=== PATIENT | male | born 1945 | race Caucasian/White ===

== ENCOUNTER 2017-09-07 19:04 | Inpatient (IN) | payer MEDICARE ==
[~2017-09-07] VITALS: Ht 188 cm; Wt 79.4 kg
[2017-09-07] MEDS ORDERED: ONDANSETRON IV *ER 4 MG/2 ML VIAL IM ONE (19:30)
[2017-09-07] MEDS ORDERED: MORPHINE SULFATE 4 MG/1 ML DISP.SYRIN IM ONE (19:30)
[2017-09-07] MEDS ORDERED: ONDANSETRON 4 MG/2 ML VIAL ONE ×2 (19:54→19:59)
[2017-09-07] MEDS ORDERED: MORPHINE SULFATE 4 MG/1 ML DISP.SYRIN ONE ×2 (19:54→21:29)
[2017-09-07] MEDS ORDERED: MORPHINE SULFATE 10 MG/1 ML DISP.SYRIN ONE (19:59)
[2017-09-07 20:28] LABS: BASOPHILS # (AUTO) 0.1 K/uL (0.0-8.0); BASOPHILS % (AUTO) 0.9 % (0.0-2.0); EOSINOPHILS # (AUTO) 0.2 K/uL (0.0-0.7); EOSINOPHILS % (AUTO) 2.2 % (0.0-7.0); HEMATOCRIT 36.5 % (36.7-47.1); HEMOGLOBIN 12.8 g/dL (12.5-16.3); LYMPHOCYTES # (AUTO) 1.9 K/uL (20.0-40.0); MEAN CORPUSCULAR HEMOGLOBIN 34.1 uug (23.8-33.4); MEAN CORPUSCULAR HGB CONC 35 g/dL (32.5-36.3); MEAN CORPUSCULAR VOLUME 97.2 fL (73.0-96.2); MONOCYTES # (AUTO) 0.6 K/uL (2.0-10.0); MONOCYTES % (AUTO) 6.7 % (0.0-11.0); NEUTROPHILS # (AUTO) 6.8 K/uL (1.8-8.9); NEUTROPHILS % (AUTO) 70.2 % (38.5-71.5); PLATELET COUNT (AUTO) 292 K/uL (152-348); RED BLOOD CELL COUNT(AUTO) 3.76 MIL/uL (4.06-5.63); WHITE BLOOD COUNT (AUTO) 9.7 K/uL (3.6-10.2)
[2017-09-07 20:36] LABS: CREATININE 1.6 mg/dL (0.6-1.3); POTASSIUM 4.5 mmol/L (3.5-5.1)
[2017-09-07] MEDS ORDERED: MORPHINE SULFATE 4 MG/1 ML DISP.SYRIN IV ONE (20:45)
[2017-09-07 20:47] LABS: BILIRUBIN,DIRECT 0.1 mg/dL (0.0-0.2); BILIRUBIN,TOTAL 0.3 mg/dL (0.2-1.0); TOTAL PROTEIN, SERUM 6.6 g/dL (6.4-8.2)
[2017-09-07] MEDS ORDERED: IV D5 1/2 NS 1000 ML 1,000 ML IV ONE (21:03)
--- NOTE | 2017-09-07 21:30 | NUR ---
DR GARCÍA AT [facility] WILL ADMIT PATIENT.
--- NOTE | 2017-09-07 21:45 | NUR ---
Pt. admitted to [facility] , under care of Radha Garcia Belongs List completed
[2017-09-07] MEDS ORDERED: MORPHINE SULFATE 2 MG/1 ML DISP.SYRIN IV PRN (22:15)
[2017-09-07] MEDS ORDERED: ONDANSETRON 4 MG/2 ML VIAL IV PRN (22:15)
[2017-09-07] MEDS ORDERED: Z GUARD REMEDY PASTE 57 GM TUBE TOP PRN (22:15)
[2017-09-07] MEDS ORDERED: MAGNESIUM HYDROXIDE 30 ML LIQUID UDC PO PRN (22:15)
[2017-09-08] MEDS: HYDROCODONE/APAP 5-325MG TABLET PO PRN ×4 (01:18→22:38)
[2017-09-08] MEDS: IV NS 1000 ML 1,000 ML IV PRN (01:24)
[2017-09-08] MEDS ORDERED: HYDROCODONE/APAP 5-325MG TABLET ONE (01:33)
[2017-09-08 04:47] VITALS: BP 102/61
[2017-09-08 05:31] LABS: BASOPHILS # (AUTO) 0.1 K/uL (0.0-8.0); BASOPHILS % (AUTO) 0.8 % (0.0-2.0); EOSINOPHILS % (AUTO) 0.1 % (0.0-7.0); HEMATOCRIT 34.5 % (36.7-47.1); HEMOGLOBIN 11.9 g/dL (12.5-16.3); LYMPHOCYTES # (AUTO) 1.5 K/uL (20.0-40.0); LYMPHOCYTES % (AUTO) 14.3 % (20.5-51.5); MEAN CORPUSCULAR HEMOGLOBIN 34.1 uug (23.8-33.4); MEAN CORPUSCULAR HGB CONC 35 g/dL (32.5-36.3); MEAN CORPUSCULAR VOLUME 98.4 fL (73.0-96.2); MONOCYTES # (AUTO) 0.8 K/uL (2.0-10.0); MONOCYTES % (AUTO) 7.4 % (0.0-11.0); NEUTROPHILS # (AUTO) 8.1 K/uL (1.8-8.9); NEUTROPHILS % (AUTO) 77.4 % (38.5-71.5); PLATELET COUNT (AUTO) 259 K/uL (152-348); WHITE BLOOD COUNT (AUTO) 10.4 K/uL (3.6-10.2)
[2017-09-08] MEDS ORDERED: MORPHINE SULFATE 2 MG/1 ML DISP.SYRIN ONE (05:38)
[2017-09-08 05:47] LABS: BILIRUBIN,TOTAL 0.5 mg/dL (0.2-1.0); CREATININE 2.3 mg/dL (0.6-1.3); MAGNESIUM 1.9 mg/dL (1.8-2.4); PHOSPHOROUS 3.8 mg/dL (2.5-4.9); POTASSIUM 4.9 mmol/L (3.5-5.1)
[2017-09-08] MEDS: PANTOPRAZOLE SODIUM 40 MG TABLET.DR PO SCH ×2 (05:53→08:05)
[2017-09-08 05:55] LABS: THYROID STIMULATING HORMONE 2.914 mIU/mL (0.358-3.740)
[2017-09-08 06:24] LABS: TOTAL PROTEIN, SERUM 6.7 g/dL (6.4-8.2)
--- NOTE | 2017-09-08 07:10 | NUR ---
Received client in bed awake, alert and oriented times 4. Client is stating no pain relief from previous pain medication administration in the morning. Client is able state needs
--- NOTE | 2017-09-08 08:40 | NUR ---
Bladder scan performed, 177ml were noted. Encouraging client to void. No distention noted and discomfort stated by client
[2017-09-08] MEDS: MORPHINE SULFATE 4 MG/1 ML DISP.SYRIN IV PRN ×2 (11:19→18:22)
[2017-09-08 11:31] LABS: IRON, SERUM 16 ug/dL (50-175)
--- NOTE | 2017-09-08 11:35 | NUR ---
Client refused physical therapy. It was reinforced the importance of PT. Client stated he is not ready, stated maybe tomorrow. Noted that the client has not yet voided. Client states no discomfort or distention, upon assessment there is no distention
[2017-09-08 12:03] VITALS: BP 124/69
--- NOTE | 2017-09-08 12:54 | NUR ---
DVT pumps is place, client is compliant and understands the need for them. Client is encouraged to eat and to hydrate. Noted on the right anterior of the leg a skin abrasions. no drainage, no bleeding, no signs of infection. left open to air
--- NOTE | 2017-09-08 14:28 | NUR ---
Client went down for a CAT Scan. IV hydration placed on hold
--- NOTE | 2017-09-08 14:40 | NUR ---
Client arrived back from CAT scan
[2017-09-08 15:28] VITALS: BP 121/79
[2017-09-08 15:39] VITALS: BP 168/84
--- NOTE | 2017-09-08 15:44 | NUR ---
MRI checklist completed, ticket for transportation completed. Client has been premedicated with pain medication before departure for MRI
--- NOTE | 2017-09-08 16:20 | NUR ---
client was transported to for MRI via ambulance with two EMT's. VS stable, client stable
--- NOTE | 2017-09-08 16:30 | NUR ---
Received report on the CT Scan from Dr Mason. Recommending CT of the mani pelvis, CT of the abdomen and pelvis with IV contrast. Please see CT scan for results
--- NOTE | 2017-09-08 16:40 | NUR ---
Dr Tello was reached and endorsed the results of the CT scan and the recommendations for further CT scans the mani pelvis and CT of the abdomen and pelvis with IV contrast. New orders for clients high BP.
--- NOTE | 2017-09-08 17:00 | NUR ---
Client is off the unit. Client is at [facility] for MRI procedure Addendum: 09/08/17 at 1701 by CHAITANYA WRIGHT RN Amended: Links added.
--- NOTE | 2017-09-08 17:01 | NUR ---
Client is off the floor. Client is [facility] for MRI procedure Addendum: 09/08/17 at 1702 by CHAITANYA WRIGHT RN Amended: Links added.
--- NOTE | 2017-09-08 18:08 | NUR ---
Client arrived back to unit accompanied by two EMT's.
[2017-09-08] MEDS: METOPROLOL TARTRATE 25 MG TABLET PO SCH (18:21)
--- NOTE | 2017-09-08 18:22 | NUR ---
Metoprolol given late due to client being of the med-surg for floor for MRI procedure at [facility]
--- NOTE | 2017-09-08 18:34 | NUR ---
Client is in bed comfortably, pain medication given, BP medication give, IV NaCl restarted, 455 ml have been infused due to holding the hydration for CT scan and MRI at [facility] throughout the day. DVT pumps in place. Bed alarm on. Client has not yet voided. No distension and no discomfort stated by client
[2017-09-08 20:00] VITALS: BP 137/73
--- NOTE | 2017-09-08 20:10 | NUR ---
Patient resting in bed and watching TV. AAO x4. No acute distress noted. No c/o pain or discomfort at this time. Safety measures maintained. Call light and personal belongings within reach. Will continue to monitor.
[2017-09-08] MEDS: GABAPENTIN 100 MG CAPSULE PO SCH (21:02)
--- NOTE | 2017-09-09 00:30 | NUR ---
Patient's bladder is distended. Pt stated that he had not voided the whole day. Bladder scan was done and resulted in [address] Zavala was notified and ordered in and out cath Q6H PRN.
--- NOTE | 2017-09-09 00:45 | NUR ---
Performed in and out cath and obtained 700 mL of urine. Pt felt relieved. Will continue to monitor.
[2017-09-09] MEDS: IV NS 1000 ML 1,000 ML IV PRN ×2 (01:05→18:45)
[2017-09-09 01:42] LABS: *BLOOD, URINE NEGATIVE (NEGATIVE); *COLOR,URINE YELLOW (YELLOW); *KETONES,URINE TRACE (NEGATIVE); *PROTEIN,URINE NEGATIVE (NEGATIVE); *UROBILINOGEN,URINE 0.2 E.U./dl (NORMAL); LEUKOCYTE ESTERASE ,URINE NEGATIVE (NEGATIVE); NITRITE, URINE NEGATIVE (NEGATIVE); PH,URINE 5.5 (5.0-8.0); UGLUCOSE NEGATIVE (NEGATIVE)
[2017-09-09 01:48] LABS: *BILIRUBIN,URIN 1+ (NEGATIVE); *CLARITY,URINE HAZY (CLEAR)
[2017-09-09 01:57] LABS: *CREATININE,URINE 256.2 mg/dL (30-125); *URINE TOTAL PROTEIN RANDOM 23.2 mg/dL (<150/24HR)
[2017-09-09 01:58] LABS: BACTERIA,URINE NONE SEEN /HPF (NONE SEEN); RBC,URINE 0-3 /HPF (0-3); SQUAMOUS EPITHELIAL CELL,UR FEW /HPF (NONE SEEN); WBC,URINE 0-3 /HPF (0-3)
[2017-09-09] MEDS: HYDROCODONE/APAP 5-325MG TABLET PO PRN ×3 (03:50→21:06)
[2017-09-09 04:46] VITALS: BP 132/58
--- NOTE | 2017-09-09 06:30 | NUR ---
Bladder scan 140 mL. Will continue to monitor.
[2017-09-09] MEDS: PANTOPRAZOLE SODIUM 40 MG TABLET.DR PO SCH (06:38)
[2017-09-09 07:01] LABS: BILIRUBIN,TOTAL 0.8 mg/dL (0.2-1.0); PHOSPHOROUS 3.8 mg/dL (2.5-4.9); POTASSIUM 4.3 mmol/L (3.5-5.1); TOTAL PROTEIN, SERUM 5.9 g/dL (6.4-8.2)
--- NOTE | 2017-09-09 07:10 | NUR ---
RECEIVED REPORT FROM ROLL MACHINE OPERATOR NURSE,PATIENT IN BED AWAKE,REPORTS PAIN 10/10 BUT NO GRIMACING, GUARDING OR OTHER S/S OF DISTRESS. BED IN LOW POSITION, SIDE RAILS UP X2.
[2017-09-09 07:20] LABS: BASOPHILS # (AUTO) 0.1 K/uL (0.0-8.0); BASOPHILS % (AUTO) 0.9 % (0.0-2.0); EOSINOPHILS # (AUTO) 0.1 K/uL (0.0-0.7); EOSINOPHILS % (AUTO) 1.2 % (0.0-7.0); LYMPHOCYTES # (AUTO) 2.1 K/uL (20.0-40.0); LYMPHOCYTES % (AUTO) 22.3 % (20.5-51.5); MEAN CORPUSCULAR HGB CONC 35 g/dL (32.5-36.3); MEAN CORPUSCULAR VOLUME 98.5 fL (73.0-96.2); MONOCYTES % (AUTO) 10.6 % (0.0-11.0); PLATELET COUNT (AUTO) 228 K/uL (152-348); RED BLOOD CELL COUNT(AUTO) 2.98 MIL/uL (4.06-5.63); WHITE BLOOD COUNT (AUTO) 9.3 K/uL (3.6-10.2)
[2017-09-09 07:31] LABS: HEMATOCRIT 29.3 % (36.7-47.1); HEMOGLOBIN 10.1 g/dL (12.5-16.3)
[2017-09-09] MEDS: GABAPENTIN 100 MG CAPSULE PO SCH ×3 (08:41→17:04)
[2017-09-09] MEDS: METOPROLOL TARTRATE 25 MG TABLET PO SCH ×3 (08:42→17:06)
--- NOTE | 2017-09-09 09:48 | NUR ---
PERFORMED BLADDER SCAN REVEALING AVERAGE OF 280CC. PATIENT WILL CONTINUE TO TRY TO URINATE ON OWN PER REQUEST. WILL CONSIDER IN/OUT CATH IF URINE CONTINUES TO BE RETAINED ORDERED.
[2017-09-09 11:28] VITALS: BP 135/60
[2017-09-09] MEDS: MORPHINE SULFATE 4 MG/1 ML DISP.SYRIN IV PRN ×2 (13:00→18:32)
[2017-09-09 15:08] VITALS: BP 142/56
[2017-09-09] MEDS: HEPARIN SODIUM,PORCINE 5,000 UNITS/ML VIAL SQ SCH ×2 (17:03→20:35)
[2017-09-09] MEDS: BOOST GLUCOSE CONTROL 237 ML LIQUID (CHOCOLATE) PO SCH (17:04)
--- NOTE | 2017-09-09 17:56 | NUR ---
Catheter placed on patient as bladder scan revealed 640cc urine. Patient tolerated well, no evidence of distress noted, bed in low position, side rails up x2. Patient has had intermittent severe pain, patient has been rotated onto side and inspected for bed sores, nothing noted. Patient was informed that he must rotate every 2 hours to prevent wounds.
--- NOTE | 2017-09-09 19:51 | NUR ---
RECEIVED SHIFT REPORT FROM DAY SHIFT NURSE. PATIENT IS A/OX4, STABLE CONDITION NO S/S. ON STRICT BED REST. BEEBE IN PLACE, INTACT. PAIN MANAGEMENT WILL BE PROVIDED. BED IN LOCKED/LOW POSITION, SIDE RAILS UP X2, BED ALARM ON, CALL LIGHT WITHIN REACH. SAFETY/ COMFORT WILL BE PROVIDED.
[2017-09-09 20:32] VITALS: BP 126/58
--- NOTE | 2017-09-09 20:35 | NUR ---
TEMPERATURE 100.4: COOLING MEASURES AND TYLENOL 650 MG PO WILL BE GIVEN.
[2017-09-09] MEDS: ACETAMINOPHEN 325 MG TABLET PO PRN (21:05)
[2017-09-10] MEDS: HYDROCODONE/APAP 5-325MG TABLET PO PRN ×3 (06:10→20:29)
[2017-09-10] MEDS: PANTOPRAZOLE SODIUM 40 MG TABLET.DR PO SCH (06:10)
[2017-09-10] MEDS: IV NS 1000 ML 1,000 ML IV PRN ×2 (06:24→21:38)
[2017-09-10 06:33] VITALS: BP 153/66
[2017-09-10 06:56] LABS: BASOPHILS # (AUTO) 0.1 K/uL (0.0-8.0); BASOPHILS % (AUTO) 0.6 % (0.0-2.0); EOSINOPHILS # (AUTO) 0.1 K/uL (0.0-0.7); EOSINOPHILS % (AUTO) 1.5 % (0.0-7.0); HEMATOCRIT 28.3 % (36.7-47.1); HEMOGLOBIN 9.8 g/dL (12.5-16.3); LYMPHOCYTES # (AUTO) 1.8 K/uL (20.0-40.0); LYMPHOCYTES % (AUTO) 19.2 % (20.5-51.5); MEAN CORPUSCULAR HEMOGLOBIN 34.3 uug (23.8-33.4); MEAN CORPUSCULAR HGB CONC 34 g/dL (32.5-36.3); MEAN CORPUSCULAR VOLUME 99.5 fL (73.0-96.2); MONOCYTES # (AUTO) 0.8 K/uL (2.0-10.0); MONOCYTES % (AUTO) 8.8 % (0.0-11.0); NEUTROPHILS # (AUTO) 6.6 K/uL (1.8-8.9); NEUTROPHILS % (AUTO) 69.9 % (38.5-71.5); PLATELET COUNT (AUTO) 218 K/uL (152-348); RED BLOOD CELL COUNT(AUTO) 2.85 MIL/uL (4.06-5.63); WHITE BLOOD COUNT (AUTO) 9.4 K/uL (3.6-10.2)
--- NOTE | 2017-09-10 07:00 | NUR ---
PATIENT'S BP 153/64. PATIENT COMPLAINING OF CHEST PAIN AT LEFT LATERAL CHEST, 6/10 SIMILAR TO A HEART BURN THAT IS RADIATING TOWARDS BACK. AWAITING DOCTOR CALL BACK, AND WILL ENDORSE SITUATION TO NEXT SHIFT.
[2017-09-10 07:07] LABS: CREATININE 1.5 mg/dL (0.6-1.3); MAGNESIUM 1.9 mg/dL (1.8-2.4); PHOSPHOROUS 2.9 mg/dL (2.5-4.9); POTASSIUM 4.3 mmol/L (3.5-5.1)
[2017-09-10] MEDS: BOOST GLUCOSE CONTROL 237 ML LIQUID (CHOCOLATE) PO SCH ×2 (08:00→17:20)
[2017-09-10] MEDS: CARISOPRODOL 350 MG TABLET PO PRN (10:03)
[2017-09-10] MEDS: GABAPENTIN 100 MG CAPSULE PO SCH ×3 (10:03→17:22)
[2017-09-10] MEDS: METOPROLOL TARTRATE 25 MG TABLET PO SCH ×2 (10:07→17:22)
[2017-09-10] MEDS: NICOTINE 21 MG/24HR PATCH TD SCH (10:09)
[2017-09-10] MEDS: HEPARIN SODIUM,PORCINE 5,000 UNITS/ML VIAL SQ SCH ×2 (10:09→23:36)
[2017-09-10 11:36] VITALS: BP 126/63
[2017-09-10 15:59] VITALS: BP 160/70
--- NOTE | 2017-09-10 19:40 | NUR ---
RECEIVED SHIFT REPORT FROM DAY SHIFT NURSE. PATIENT RESTING COMFORTABLY IN BED, NO S/S OF DISTRESS, STABLE CONDITION. ON STRICT BED REST, BED IN LOCKED/LOW POSITION WITH SIDE RAILS UP X2, CALL LIGHT WITHIN REACH. SAFETY/ COMFORT WILL BE PROVIDED.
[2017-09-10 20:00] VITALS: BP 137/64
[2017-09-11] VITALS (7 sets, daily range): BP systolic 93–178; BP diastolic 49–84
--- NOTE | 2017-09-11 05:25 | NUR ---
PATIENT'S BP 169/68. NOTIFIED OF SITUATION AND ORDERED: HYDRALAZINE 10 MG IV ONCE.
[2017-09-11] MEDS ORDERED: hydrALAZINE HCL 20 MG/1 ML VIAL IV PRN (05:30)
[2017-09-11] MEDS: HYDROCODONE/APAP 5-325MG TABLET PO PRN ×2 (05:45→21:01)
[2017-09-11] MEDS: PANTOPRAZOLE SODIUM 40 MG TABLET.DR PO SCH (05:45)
[2017-09-11] MEDS: IV NS 1000 ML 1,000 ML IV PRN (05:47)
--- NOTE | 2017-09-11 06:38 | NUR ---
PATIENT SLEPT THROUGH MAJORITY OF THE NIGHT. RESTING COMFORTABLY IN BED AT THIS MOMENT. NO SIGNS OF ASPIRATIONS, ON STRICT BED REST, URINE OUTPUT APPEARS ADEQUATE. BLOOD PRESSURE IS ELEVATED AND HAS BEEN CLOSELY MONITORED. IN STABLE CONDITION, NO S/S OF DISTRESS. PAIN MANAGEMENT PROVIDED AND PATIENT'S VERBALIZED THAT PAIN IS TOLERABLE AT THIS MOMENT. BED IN LOCKED/LOW POSITION WITH SIDE RAILS UP X2, BED ALARM ON, CALL LIGHT WITHIN REACH.
--- NOTE | 2017-09-11 07:00 | NUR ---
RECEIVED REPORT FROM WATER METER INSTALLER NURSE, PATIENT IN BED AWAKE, NO EVIDENCE OF DISTRESS NOTED, BED IN LOW POSITION, SIDE RAILS UP X2.
[2017-09-11 07:02] LABS: BASOPHILS # (AUTO) 0.1 K/uL (0.0-8.0); EOSINOPHILS # (AUTO) 0.2 K/uL (0.0-0.7); EOSINOPHILS % (AUTO) 2.8 % (0.0-7.0); HEMATOCRIT 28.6 % (36.7-47.1); HEMOGLOBIN 9.7 g/dL (12.5-16.3); LYMPHOCYTES # (AUTO) 1.9 K/uL (20.0-40.0); MEAN CORPUSCULAR HEMOGLOBIN 33.6 uug (23.8-33.4); MEAN CORPUSCULAR HGB CONC 34 g/dL (32.5-36.3); MEAN CORPUSCULAR VOLUME 98.4 fL (73.0-96.2); MONOCYTES # (AUTO) 0.7 K/uL (2.0-10.0); MONOCYTES % (AUTO) 9.1 % (0.0-11.0); NEUTROPHILS % (AUTO) 63.1 % (38.5-71.5); PLATELET COUNT (AUTO) 242 K/uL (152-348); WHITE BLOOD COUNT (AUTO) 7.9 K/uL (3.6-10.2)
[2017-09-11 07:32] LABS: BILIRUBIN,TOTAL 0.6 mg/dL (0.2-1.0); CREATININE 1.3 mg/dL (0.6-1.3); MAGNESIUM 1.8 mg/dL (1.8-2.4); PHOSPHOROUS 2.4 mg/dL (2.5-4.9); POTASSIUM 4.9 mmol/L (3.5-5.1)
[2017-09-11] MEDS: BOOST GLUCOSE CONTROL 237 ML LIQUID (CHOCOLATE) PO SCH ×2 (08:34→17:31)
[2017-09-11] MEDS: GABAPENTIN 100 MG CAPSULE PO SCH ×3 (08:34→17:30)
[2017-09-11] MEDS: METOPROLOL TARTRATE 25 MG TABLET PO SCH ×2 (08:35→17:30)
[2017-09-11] MEDS: HEPARIN SODIUM,PORCINE 5,000 UNITS/ML VIAL SQ SCH ×2 (08:36→21:07)
[2017-09-11] MEDS: NICOTINE 21 MG/24HR PATCH TD SCH (08:36)
[2017-09-11] MEDS: MORPHINE SULFATE 4 MG/1 ML DISP.SYRIN IV PRN (11:23)
--- NOTE | 2017-09-11 13:50 | NUR ---
PATIENT WAS SEEN BY DR GUTIERREZ WHICH CLEARED HIM TO PARTICIPATE IN PHYSICAL THERAPY. DR GUTIERREZ DID NOT FEEL THAT IT WAS NECESSARY FOR PATIENT TO HAVE A BRACE.
[2017-09-11] MEDS: CARISOPRODOL 350 MG TABLET PO PRN ×2 (15:18→21:05)
[2017-09-11] MEDS ORDERED: NEUTRA PHOS PACKET PO ONE (15:45)
--- NOTE | 2017-09-11 19:43 | NUR ---
RECEIVED SHIFT REPORT FROM DAY SHIFT NURSE. PATIENT APPEARED TO HAVE WOKEN UP FROM BAD DREAM BUT IS REORIENTED. STABLE CONDITION, NO S/S OF DISTRESS. ON BED REST, BEEBE INTACT/IN PLACE. NO COMPLAINTS OF PAIN SO FAR. PAIN MANAGEMENT WILL BE PROVIDED. BED IN LOCKED/LOW POSITION, SIDE RAILS UP X2, BED ALARM ON, CALL LIGHT WITHIN REACH.
--- NOTE | 2017-09-11 20:00 | NUR ---
PATIENT'S MENTAL STATUS IS ALTERED. PATIENT SPEAKING TO PEOPLE IN THE ROOM THAT ARE NOT THERE. PATIENT SEEING PEOPLE THAT ARE NOT THERE. PATIENT VERBALIZES THAT HE DOES NOT HAVE THOUGHTS OF HURTING HIMSELF OR OTHERS. MD NOTIFIED AND ORDERED CT SCAN HEAD STAT.
--- NOTE | 2017-09-11 22:00 | NUR ---
PATIENT'S BP 178/77. MD NOTIFIED AND ORDERED HYDRALAZINE 20 MG PO PRN WHEN SBP IS ABOVE 160. WILL ADMINISTER TO PATIENT.
[2017-09-11] MEDS: hydrALAZINE HCL 10 MG TABLET PO PRN (22:32)
[2017-09-11] MEDS ORDERED: hydrALAZINE HCL 10 MG TABLET ONE (22:35)
[2017-09-12 00:13] VITALS: BP 140/69
[2017-09-12] MEDS: IV NS 1000 ML 1,000 ML IV PRN ×2 (00:18→11:29)
[2017-09-12 04:00] VITALS: BP 166/74
[2017-09-12] MEDS: MORPHINE SULFATE 4 MG/1 ML DISP.SYRIN IV PRN ×2 (04:52→13:59)
--- NOTE | 2017-09-12 05:43 | NUR ---
PATIENT CONTINUES TO BE EXTREMELY CONFUSED. TRIES TO GET OUT OF BED AND LEAVE. VERBALIZES, "I WANT TO GET THE HELL OUT OF HERE". PATIENT CONTINUES TO HALLUCINATE AND SEE "A KID" , AND "A MAN" AND SPEAKS TO THEM BUT NO ONE IS IN THE ROOM.
[2017-09-12] MEDS ORDERED: hydrALAZINE HCL 10 MG TABLET ONE (05:58)
[2017-09-12] MEDS: hydrALAZINE HCL 10 MG TABLET PO PRN (06:36)
[2017-09-12] MEDS: PANTOPRAZOLE SODIUM 40 MG TABLET.DR PO SCH (06:37)
[2017-09-12 06:41] LABS: BASOPHILS # (AUTO) 0.1 K/uL (0.0-8.0); BASOPHILS % (AUTO) 0.8 % (0.0-2.0); EOSINOPHILS # (AUTO) 0.2 K/uL (0.0-0.7); HEMATOCRIT 28.6 % (36.7-47.1); HEMOGLOBIN 9.9 g/dL (12.5-16.3); LYMPHOCYTES # (AUTO) 1.2 K/uL (20.0-40.0); MEAN CORPUSCULAR HEMOGLOBIN 33.5 uug (23.8-33.4); MEAN CORPUSCULAR HGB CONC 35 g/dL (32.5-36.3); MONOCYTES # (AUTO) 0.6 K/uL (2.0-10.0); NEUTROPHILS # (AUTO) 5.6 K/uL (1.8-8.9); NEUTROPHILS % (AUTO) 73.2 % (38.5-71.5); PLATELET COUNT (AUTO) 260 K/uL (152-348); RED BLOOD CELL COUNT(AUTO) 2.95 MIL/uL (4.06-5.63); WHITE BLOOD COUNT (AUTO) 7.6 K/uL (3.6-10.2)
--- NOTE | 2017-09-12 06:57 | NUR ---
PATIENT VERY UNCOOPERATIVE, CONFUSED. PATIENT PULLED OUT HIS IV WHILE ATTEMPTING TO GET OUT OF BED. ALSO ATTEMPTED TO PULL OUT BEEBE CATHETER. BP 166/74: HYDRALAZINE 20 MG PO GIVEN TO PATIENT.
[2017-09-12 07:06] LABS: CREATININE 1.2 mg/dL (0.6-1.3); MAGNESIUM 1.6 mg/dL (1.8-2.4); PHOSPHOROUS 3.6 mg/dL (2.5-4.9)
--- NOTE | 2017-09-12 08:17 | NUR ---
PT VERY CONFUSED, DOES NOT WANT ANY MEDICATIONS AT THIS TIME, STATES VERY CONFUSED AND OVERWHELMED. PT IN BED, BED ALARM ON, TELE MONITOR NOT ON, PT REFUSING TO WEAR AT THIS TIME. WILL TRY AGAIN AND MONITOR CLOSELY
[2017-09-12] MEDS: BOOST GLUCOSE CONTROL 237 ML LIQUID (CHOCOLATE) PO SCH ×2 (08:36→16:15)
[2017-09-12] MEDS: NICOTINE 21 MG/24HR PATCH TD SCH (08:51)
[2017-09-12] MEDS: GABAPENTIN 100 MG CAPSULE PO SCH ×3 (08:51→16:14)
[2017-09-12] MEDS: METOPROLOL TARTRATE 25 MG TABLET PO SCH ×2 (08:52→16:14)
[2017-09-12] MEDS: HEPARIN SODIUM,PORCINE 5,000 UNITS/ML VIAL SQ SCH ×2 (08:58→21:12)
--- NOTE | 2017-09-12 10:00 | NUR ---
NEW IV INSERTED IN RFA G22, IV FLUIDS RESUMED. BED BATH GIVEN AND PT MADE COMFORTABLE. SLEEPING IN BED AT THIS TIME, CALL LIGHT IN REACH
[2017-09-12 11:43] VITALS: BP 156/71
[2017-09-12] MEDS ORDERED: HEPA50007 SQ (12:19)
[2017-09-12] MEDS ORDERED: GABA-532 PO (12:19)
[2017-09-12] MEDS ORDERED: HYDR-4075 PO (12:19)
[2017-09-12] MEDS ORDERED: NICO1PAT28 TD (12:19)
[2017-09-12] MEDS ORDERED: METO25TA6 PO (12:19)
[2017-09-12] MEDS ORDERED: PANT40TA2 PO (12:19)
[2017-09-12] MEDS ORDERED: CARI350T27 PO (12:19)
[2017-09-12] MEDS: MAGNESIUM SULFATE/D5W 100 ML IV SCH ×2 (12:38→13:51)
[2017-09-12 15:42] VITALS: BP 145/76
--- NOTE | 2017-09-12 19:25 | NUR ---
RECEIVED SHIFT REPORT FROM DAY SHIFT NURSE. PATIENT RESTING COMFORTABLY IN BED WITH BRACE ON. PAIN MANAGEMENT WILL BE PROVIDED NEEDED. WILL REORIENT PATIENT WHEN CONFUSED. NO LONGER ON BED REST, BED IN LOCKED/LOW POSITION WITH SIDE RAILS UP X2, CALL LIGHT WITHIN REACH, BED ALARM ON. SAFETY/ COMFORT WILL BE PROVIDED.
[2017-09-12 20:00] VITALS: BP 137/67
--- NOTE | 2017-09-13 00:51 | NUR ---
TRANSFERRED CARE TO ANOTHER NURSE. REPORT GIVEN.
--- NOTE | 2017-09-13 00:55 | NUR ---
Patient received laying on bed, asleep, no s/s of any acute distress. Safety measures provided. call light within reach.
[2017-09-13] MEDS: MORPHINE SULFATE 4 MG/1 ML DISP.SYRIN IV PRN (01:02)
[2017-09-13] MEDS: IV NS 1000 ML 1,000 ML IV PRN ×2 (01:44→15:23)
[2017-09-13 06:28] VITALS: BP 132/76
--- NOTE | 2017-09-13 06:58 | NUR ---
pt. slept throughout the shift, no s/s of any respi. distress. Safety measures provided. All due meds given. Able to make needs known. will endorse to AM shift nurse.
[2017-09-13] MEDS: PANTOPRAZOLE SODIUM 40 MG TABLET.DR PO SCH (07:02)
--- NOTE | 2017-09-13 07:30 | NUR ---
RECEIVED REPORT, RECEIVED PATIENT ASLEEP, CALL LIGHT WITHIN REACH. NON-LABORED BREATHING.
[2017-09-13] MEDS: BOOST GLUCOSE CONTROL 237 ML LIQUID (CHOCOLATE) PO SCH ×2 (08:42→16:11)
[2017-09-13] MEDS: GABAPENTIN 100 MG CAPSULE PO SCH ×3 (08:46→16:10)
[2017-09-13] MEDS: HYDROCODONE/APAP 5-325MG TABLET PO PRN ×3 (08:47→23:32)
[2017-09-13] MEDS: METOPROLOL TARTRATE 25 MG TABLET PO SCH ×2 (08:47→16:11)
[2017-09-13] MEDS: NICOTINE 21 MG/24HR PATCH TD SCH (08:50)
[2017-09-13] MEDS: HEPARIN SODIUM,PORCINE 5,000 UNITS/ML VIAL SQ SCH ×2 (08:50→20:59)
--- NOTE | 2017-09-13 09:00 | NUR ---
PATIENT AWAKE, EATING BREAKFAST. TOLERATING WELL. NOT IN ANY FORM OF DISTRESS. ALERT AND ORIENTED X3. PATIENT COMPLAINED OF LOWER BACK PAIN RATED 6/10. PRN NORCO GIVEN
--- NOTE | 2017-09-13 10:14 | NUR ---
UP WITH PHYSICAL THERAPY. TOLERATED THERAPY WELL. ABLE TO TAKE FEW STEPS AND AMBULATE. TLSO BRACE INTACT.
[2017-09-13 11:28] LABS: BASOPHILS # (AUTO) 0.1 K/uL (0.0-8.0); BASOPHILS % (AUTO) 0.9 % (0.0-2.0); EOSINOPHILS # (AUTO) 0.2 K/uL (0.0-0.7); EOSINOPHILS % (AUTO) 3.6 % (0.0-7.0); HEMATOCRIT 26.9 % (36.7-47.1); HEMOGLOBIN 9.2 g/dL (12.5-16.3); LYMPHOCYTES # (AUTO) 1.2 K/uL (20.0-40.0); LYMPHOCYTES % (AUTO) 18.3 % (20.5-51.5); MEAN CORPUSCULAR HEMOGLOBIN 33.6 uug (23.8-33.4); MEAN CORPUSCULAR HGB CONC 34 g/dL (32.5-36.3); MEAN CORPUSCULAR VOLUME 97.7 fL (73.0-96.2); MONOCYTES # (AUTO) 0.5 K/uL (2.0-10.0); MONOCYTES % (AUTO) 7.4 % (0.0-11.0); NEUTROPHILS # (AUTO) 4.7 K/uL (1.8-8.9); NEUTROPHILS % (AUTO) 69.8 % (38.5-71.5); PLATELET COUNT (AUTO) 274 K/uL (152-348); RED BLOOD CELL COUNT(AUTO) 2.75 MIL/uL (4.06-5.63); WHITE BLOOD COUNT (AUTO) 6.7 K/uL (3.6-10.2)
[2017-09-13 11:32] VITALS: BP 127/64
[2017-09-13 11:56] LABS: BILIRUBIN,TOTAL 0.5 mg/dL (0.2-1.0); CREATININE 1.2 mg/dL (0.6-1.3); PHOSPHOROUS 3.6 mg/dL (2.5-4.9); POTASSIUM 4.1 mmol/L (3.5-5.1); TOTAL PROTEIN, SERUM 5.9 g/dL (6.4-8.2)
--- NOTE | 2017-09-13 12:42 | NUR ---
DISCOMFORT OVER LOWER BACK PAIN RATED 6/10. SOMA PRN GIVEN
[2017-09-13] MEDS: CARISOPRODOL 350 MG TABLET PO PRN (12:44)
[2017-09-13 16:02] VITALS: BP 137/66
--- NOTE | 2017-09-13 19:45 | NUR ---
PT RECEIVED IN BED, AWAKE. A/OX2. ABLE TO MAKE NEEDS KNOWN. V/S STABLE. IN NO ACUTE DISTRESS. NO C/O PAIN AT THIS TIME. IVF INFUSING. ON RA, TOLERATING WELL. AFEBRILE. BEEBE INTACT AND PATENT. SAFETY MEASURES IMPLEMENTED. CALL LIGHT WITHIN REACH.
[2017-09-13 20:00] VITALS: BP 145/67
[2017-09-14 06:00] VITALS: BP 169/77
[2017-09-14] MEDS: PANTOPRAZOLE SODIUM 40 MG TABLET.DR PO SCH (06:00)
[2017-09-14] MEDS: hydrALAZINE HCL 10 MG TABLET PO PRN (06:00)
[2017-09-14] MEDS: IV NS 1000 ML 1,000 ML IV PRN (06:08)
--- NOTE | 2017-09-14 06:53 | NUR ---
END OF SHIFT NOTES. PT SLEPT WELL THROUGHOUT SHIFT. IN STABLE CONDITION. IVF INFUSING. BEEBE INTACT AND PATENT. ON RA, TOLERATING WELL. PAIN MANAGED. BP CONTROLLED. ALL NEEDS ATTENDED. SAFETY MAINTAINED. CALL LIGHT WITHIN REACH.
[2017-09-14 07:04] LABS: BASOPHILS # (AUTO) 0.1 K/uL (0.0-8.0); BASOPHILS % (AUTO) 0.8 % (0.0-2.0); EOSINOPHILS # (AUTO) 0.4 K/uL (0.0-0.7); EOSINOPHILS % (AUTO) 4.9 % (0.0-7.0); HEMATOCRIT 26.4 % (36.7-47.1); HEMOGLOBIN 9.1 g/dL (12.5-16.3); LYMPHOCYTES # (AUTO) 1.9 K/uL (20.0-40.0); LYMPHOCYTES % (AUTO) 25.8 % (20.5-51.5); MEAN CORPUSCULAR HEMOGLOBIN 33.9 uug (23.8-33.4); MEAN CORPUSCULAR HGB CONC 35 g/dL (32.5-36.3); MONOCYTES # (AUTO) 0.6 K/uL (2.0-10.0); MONOCYTES % (AUTO) 8.9 % (0.0-11.0); NEUTROPHILS # (AUTO) 4.3 K/uL (1.8-8.9); NEUTROPHILS % (AUTO) 59.6 % (38.5-71.5); PLATELET COUNT (AUTO) 314 K/uL (152-348); RED BLOOD CELL COUNT(AUTO) 2.69 MIL/uL (4.06-5.63); WHITE BLOOD COUNT (AUTO) 7.3 K/uL (3.6-10.2)
--- NOTE | 2017-09-14 07:15 | NUR ---
Received client in bed asleep, no apparent signs and symptoms of SOB, pain, distress or discomfort.
[2017-09-14 07:17] LABS: BILIRUBIN,TOTAL 0.4 mg/dL (0.2-1.0); CREATININE 1.2 mg/dL (0.6-1.3); MAGNESIUM 1.9 mg/dL (1.8-2.4); PHOSPHOROUS 3.7 mg/dL (2.5-4.9); POTASSIUM 4.5 mmol/L (3.5-5.1)
[2017-09-14] MEDS: GABAPENTIN 100 MG CAPSULE PO SCH ×3 (08:38→16:08)
[2017-09-14] MEDS: METOPROLOL TARTRATE 25 MG TABLET PO SCH ×2 (08:38→16:08)
[2017-09-14] MEDS: HEPARIN SODIUM,PORCINE 5,000 UNITS/ML VIAL SQ SCH ×2 (08:40→21:12)
[2017-09-14] MEDS: BOOST GLUCOSE CONTROL 237 ML LIQUID (CHOCOLATE) PO SCH ×2 (08:44→17:32)
[2017-09-14] MEDS: MORPHINE SULFATE 4 MG/1 ML DISP.SYRIN IV PRN (08:57)
[2017-09-14] MEDS: NICOTINE 21 MG/24HR PATCH TD SCH (09:38)
--- NOTE | 2017-09-14 10:30 | NUR ---
Collected stool sample and sent down to Lab
[2017-09-14] MEDS: FERROUS SULFATE 325 MG TABEC PO SCH ×2 (10:55→21:12)
--- NOTE | 2017-09-14 11:01 | NUR ---
Client received a sponge bath. In bed awake alert and oriented times 4. Laying supine with the HOB at 45 degrees watching television. Talking and able to communicate needs. DVT pumps in place.
--- NOTE | 2017-09-14 11:10 | NUR ---
Discontinued IV NS 0.9% 1000ml as ordered
--- NOTE | 2017-09-14 11:10 | NUR ---
Physical therapy session with client, overall tolerated well. Client stated he felt a bit dizzy and weak and was verbalized to PT as well
[2017-09-14] MEDS: HYDROCODONE/APAP 5-325MG TABLET PO PRN ×2 (11:39→21:13)
[2017-09-14 12:00] VITALS: BP 124/51
--- NOTE | 2017-09-14 12:04 | NUR ---
Chest x-ray done, client tolerated well
[2017-09-14 12:30] LABS: *OCCULT BLOOD STOOL NEGATIVE (NEGATIVE)
--- NOTE | 2017-09-14 13:30 | NUR ---
Repositioned client with the assistance of the DATA REPORTING ANALYST, tolerated well. Laying on his left side, offloading the right shoulder
[2017-09-14] MEDS: DOCUSATE SODIUM 100 MG CAPSULE PO SCH ×2 (14:23→21:11)
[2017-09-14 15:42] VITALS: BP 129/89
--- NOTE | 2017-09-14 16:38 | NUR ---
Client is in bed resting comfortably watching television, no signs and symptoms of SOB, pain, distress or discomfort. Able to verbalize needs.
[2017-09-14 19:00] VITALS: BP 121/60
[2017-09-14] MEDS: MAGNESIUM HYDROXIDE 30 ML LIQUID UDC PO PRN (21:11)
[2017-09-14] MEDS ORDERED: FLEET ENEMA 133 ML BOTTLE RC ONE (21:30)
--- NOTE | 2017-09-15 05:26 | NUR ---
PT SLEPT WELL THROUGH THE NIGHT AND WAS EASILY AWOKEN, PT COMPLAINED OF PAIN THAT WOULD GET WORSE WITH MOVEMENT, PAIN MEDICATION WAS GIVEN AND WAS EFFECTIVE. PT DENIED HAVING ANY DIFFICULTY BREATHING. PT BEEBE IS INTACT AND PATENT DRAINING YELLOW URINE. ALL NEEDS MET, SAFETY MEASURES ARE IN PLACE, CALL LIGHT WITHIN REACH, BED ALARM IS ON.
[2017-09-15 06:36] LABS: BASOPHILS # (AUTO) 0.1 K/uL (0.0-8.0); BASOPHILS % (AUTO) 0.7 % (0.0-2.0); EOSINOPHILS # (AUTO) 0.4 K/uL (0.0-0.7); EOSINOPHILS % (AUTO) 4.5 % (0.0-7.0); HEMATOCRIT 26.6 % (36.7-47.1); HEMOGLOBIN 9.2 g/dL (12.5-16.3); LYMPHOCYTES # (AUTO) 2.1 K/uL (20.0-40.0); LYMPHOCYTES % (AUTO) 25.2 % (20.5-51.5); MEAN CORPUSCULAR HEMOGLOBIN 33.3 uug (23.8-33.4); MEAN CORPUSCULAR HGB CONC 34 g/dL (32.5-36.3); MEAN CORPUSCULAR VOLUME 96.9 fL (73.0-96.2); MONOCYTES # (AUTO) 0.8 K/uL (2.0-10.0); MONOCYTES % (AUTO) 9.4 % (0.0-11.0); NEUTROPHILS # (AUTO) 5.1 K/uL (1.8-8.9); NEUTROPHILS % (AUTO) 60.2 % (38.5-71.5); PLATELET COUNT (AUTO) 356 K/uL (152-348); RED BLOOD CELL COUNT(AUTO) 2.75 MIL/uL (4.06-5.63); WHITE BLOOD COUNT (AUTO) 8.5 K/uL (3.6-10.2)
[2017-09-15] MEDS: HYDROCODONE/APAP 5-325MG TABLET PO PRN ×2 (06:36→10:38)
[2017-09-15] MEDS: PANTOPRAZOLE SODIUM 40 MG TABLET.DR PO SCH (06:36)
[2017-09-15 07:10] LABS: BILIRUBIN,TOTAL 0.5 mg/dL (0.2-1.0); CREATININE 1.2 mg/dL (0.6-1.3); MAGNESIUM 2.2 mg/dL (1.8-2.4); PHOSPHOROUS 3.5 mg/dL (2.5-4.9); POTASSIUM 4.4 mmol/L (3.5-5.1); TOTAL PROTEIN, SERUM 6.1 g/dL (6.4-8.2)
[2017-09-15] MEDS: BOOST GLUCOSE CONTROL 237 ML LIQUID (CHOCOLATE) PO SCH ×2 (08:18→17:29)
[2017-09-15] MEDS: ALFUZOSIN HCL 10 MG TAB.SR.24H PO SCH (08:36)
[2017-09-15] MEDS: FERROUS SULFATE 325 MG TABEC PO SCH ×2 (08:37→20:51)
[2017-09-15] MEDS: GABAPENTIN 100 MG CAPSULE PO SCH ×3 (08:37→17:29)
[2017-09-15] MEDS: DOCUSATE SODIUM 100 MG CAPSULE PO SCH ×2 (08:37→20:51)
[2017-09-15] MEDS: METOPROLOL TARTRATE 25 MG TABLET PO SCH ×2 (08:38→17:30)
[2017-09-15] MEDS: HEPARIN SODIUM,PORCINE 5,000 UNITS/ML VIAL SQ SCH ×2 (08:41→20:53)
[2017-09-15] MEDS: NICOTINE 21 MG/24HR PATCH TD SCH (08:42)
[2017-09-15 11:48] VITALS: BP 132/64
[2017-09-15] MEDS ORDERED: MAGNESIUM HYDROXIDE 30 ML LIQUID UDC PO ONE (14:15)
[2017-09-15] MEDS: CARISOPRODOL 350 MG TABLET PO PRN (15:06)
[2017-09-15 16:51] VITALS: BP 134/72
[2017-09-15 20:00] VITALS: BP 134/63
--- NOTE | 2017-09-15 20:30 | NUR ---
PT'S A/A/O X4,DENIED OF PAIN BUT STATED THAT " I HAD CONSTIPATION BUT I DON'T WANT FLEET ENEMA". VISITED PT AT THIS TIME;NEW ORDER'S GIVEN,UPDATED THE PLAN OF CARE TO PT;HE VERBALIZED UNDERSTANDING AND COOPERATIVE NOTED.KEPT COMFORT.CALL-LIGHT WITHIN REACH.
[2017-09-15] MEDS ORDERED: MIRALAX 17 GM POWD.PACK PO ONE (20:45)
[2017-09-16] MEDS: HYDROCODONE/APAP 5-325MG TABLET PO PRN ×2 (05:21→11:04)
[2017-09-16 05:32] VITALS: BP 144/62
--- NOTE | 2017-09-16 06:10 | NUR ---
ASSISTED PT TO REPOSITION AT THIS TIME.PT SLEPT WELL DURING OF THE NIGHT.PAIN'S CONTROLLED IN THE SHIFT.NO DISTRESS NOTED IN THE SHIFT.KEPT NPO FOR XRAY ORDER IN AM;EDUCATED TO PT;HE VERBALIZED UNDERSTANDING AND COOPERATIVE.CALL-LIGHT WITHIN REACH.
[2017-09-16] MEDS: PANTOPRAZOLE SODIUM 40 MG TABLET.DR PO SCH (06:23)
--- NOTE | 2017-09-16 07:15 | NUR ---
RECEIVED PATIENT ON BED AWAKE, NO ACUTE DISTRESS NOTED. NO COMPLAINTS OF PAIN AT THIS TIME. WITH BEEBE CATHETER INTACT AND DRAINING CLEAR YELLOW URINE. NPO FOR XRAY FOR THE ABDOMEN. COMFORT MEASURES PROVIDED. CALL LIGHT WITHIN REACH WILL CONTINUE TO MONITOR CLOSELY
[2017-09-16 07:22] LABS: BILIRUBIN,TOTAL 0.4 mg/dL (0.2-1.0); CREATININE 1.2 mg/dL (0.6-1.3); MAGNESIUM 2.2 mg/dL (1.8-2.4); PHOSPHOROUS 3.8 mg/dL (2.5-4.9); POTASSIUM 4.4 mmol/L (3.5-5.1); TOTAL PROTEIN, SERUM 6.1 g/dL (6.4-8.2)
[2017-09-16 07:26] LABS: BASOPHILS # (AUTO) 0.1 K/uL (0.0-8.0); BASOPHILS % (AUTO) 0.6 % (0.0-2.0); EOSINOPHILS # (AUTO) 0.3 K/uL (0.0-0.7); EOSINOPHILS % (AUTO) 2.7 % (0.0-7.0); HEMATOCRIT 24.8 % (36.7-47.1); HEMOGLOBIN 8.6 g/dL (12.5-16.3); LYMPHOCYTES % (AUTO) 19.8 % (20.5-51.5); MEAN CORPUSCULAR HEMOGLOBIN 33.8 uug (23.8-33.4); MEAN CORPUSCULAR HGB CONC 35 g/dL (32.5-36.3); MONOCYTES # (AUTO) 0.8 K/uL (2.0-10.0); MONOCYTES % (AUTO) 7.5 % (0.0-11.0); NEUTROPHILS % (AUTO) 69.4 % (38.5-71.5); PLATELET COUNT (AUTO) 385 K/uL (152-348); RED BLOOD CELL COUNT(AUTO) 2.56 MIL/uL (4.06-5.63)
[2017-09-16] MEDS: BOOST GLUCOSE CONTROL 237 ML LIQUID (CHOCOLATE) PO SCH ×2 (07:30→17:13)
[2017-09-16] MEDS: GABAPENTIN 100 MG CAPSULE PO SCH ×3 (08:09→17:01)
[2017-09-16] MEDS: ALFUZOSIN HCL 10 MG TAB.SR.24H PO SCH (08:09)
[2017-09-16] MEDS: NICOTINE 21 MG/24HR PATCH TD SCH (08:09)
[2017-09-16] MEDS: HEPARIN SODIUM,PORCINE 5,000 UNITS/ML VIAL SQ SCH (08:12)
[2017-09-16] MEDS: FERROUS SULFATE 325 MG TABEC PO SCH ×2 (08:15→20:40)
[2017-09-16] MEDS: DOCUSATE SODIUM 100 MG CAPSULE PO SCH ×2 (08:16→20:40)
[2017-09-16] MEDS: METOPROLOL TARTRATE 25 MG TABLET PO SCH ×2 (08:16→17:04)
[2017-09-16 11:46] VITALS: BP 106/58
[2017-09-16 15:48] VITALS: BP 119/52
--- NOTE | 2017-09-16 18:26 | NUR ---
Tried to reinsert IV site on the right wrist once, was unseccessful. Patient said that she didn't want me to try anymore and will wait for the incoming steward/stewardess night nurse to try and insert IV site. Will endorse accordingly.
--- NOTE | 2017-09-16 19:00 | NUR ---
Received patient in bed, awake, watching TV at this time. Denies any pain/discomforts . Safety measures and fall precaution maintained. Continue care as planned.
[2017-09-16 20:00] VITALS: BP 135/55
[2017-09-17 05:08] VITALS: BP 132/65
[2017-09-17] MEDS: PANTOPRAZOLE SODIUM 40 MG TABLET.DR PO SCH (05:38)
[2017-09-17] MEDS: HYDROCODONE/APAP 5-325MG TABLET PO PRN ×2 (05:49→16:22)
[2017-09-17 06:41] LABS: BASOPHILS # (AUTO) 0.1 K/uL (0.0-8.0); BASOPHILS % (AUTO) 0.9 % (0.0-2.0); EOSINOPHILS # (AUTO) 0.3 K/uL (0.0-0.7); EOSINOPHILS % (AUTO) 3.2 % (0.0-7.0); HEMATOCRIT 25.6 % (36.7-47.1); HEMOGLOBIN 8.9 g/dL (12.5-16.3); LYMPHOCYTES # (AUTO) 2.3 K/uL (20.0-40.0); LYMPHOCYTES % (AUTO) 24.2 % (20.5-51.5); MEAN CORPUSCULAR HEMOGLOBIN 33.7 uug (23.8-33.4); MEAN CORPUSCULAR HGB CONC 35 g/dL (32.5-36.3); MONOCYTES # (AUTO) 0.8 K/uL (2.0-10.0); NEUTROPHILS # (AUTO) 6.2 K/uL (1.8-8.9); NEUTROPHILS % (AUTO) 63.7 % (38.5-71.5); PLATELET COUNT (AUTO) 438 K/uL (152-348); RED BLOOD CELL COUNT(AUTO) 2.63 MIL/uL (4.06-5.63); WHITE BLOOD COUNT (AUTO) 9.7 K/uL (3.6-10.2)
--- NOTE | 2017-09-17 06:41 | NUR ---
Medicated once for right groin pain with relief. No further complaint presented. Slept well. All needs attended and met. No significant event reported all night. Continue current plan of care.
[2017-09-17 06:54] LABS: BILIRUBIN,TOTAL 0.4 mg/dL (0.2-1.0); CREATININE 1.5 mg/dL (0.6-1.3); MAGNESIUM 2.2 mg/dL (1.8-2.4); PHOSPHOROUS 4.7 mg/dL (2.5-4.9); POTASSIUM 4.6 mmol/L (3.5-5.1); TOTAL PROTEIN, SERUM 6.2 g/dL (6.4-8.2)
[2017-09-17] MEDS: NICOTINE 21 MG/24HR PATCH TD SCH (08:08)
[2017-09-17] MEDS: GABAPENTIN 100 MG CAPSULE PO SCH ×3 (08:09→16:26)
[2017-09-17] MEDS: FERROUS SULFATE 325 MG TABEC PO SCH ×2 (08:09→21:32)
[2017-09-17] MEDS: DOCUSATE SODIUM 100 MG CAPSULE PO SCH ×2 (08:09→21:32)
[2017-09-17] MEDS: METOPROLOL TARTRATE 25 MG TABLET PO SCH ×2 (08:10→16:26)
[2017-09-17] MEDS: ALFUZOSIN HCL 10 MG TAB.SR.24H PO SCH (08:11)
[2017-09-17] MEDS: BOOST GLUCOSE CONTROL 237 ML LIQUID (CHOCOLATE) PO SCH ×2 (08:13→18:36)
[2017-09-17 11:39] VITALS: BP 112/51
--- NOTE | 2017-09-17 11:56 | NUR ---
RECEIVED PATIENT ON BED AWAKE A &O X 4, NO ACUTE DISTRESS NOTED. WITH HEPLOCK ON THE RIGHT FOREARM, INTACT AND PATENT. WITH BEEBE CATHETER INTACT AND DRAINING CLEAR YELLOW URINE. COMPLAINED OF DISCOMFORT CLOSE TO GROIN AREA, ASSISTED IN REPOSITIONING LEFT LEG TO ALLEVIATE DISCOMFORT. REINFORCED SAFETY AND FALL PRECAUTIONS. KEPT CLEAN AND COMFORTABLE, CALL LIGHT WITHIN REACH WILL CONTINUE TO MONITOR CLOSELY
--- NOTE | 2017-09-17 13:47 | NUR ---
PATIENT COMPLAINED OF BLOATING AND THE URGE TO MAKE A BOWEL MOVEMENT BUT CAN'T, GAVE MILK OF MAGNESIA PRN. WILL CONTINUE TO MONITOR CLOSELY
[2017-09-17] MEDS: MAGNESIUM HYDROXIDE 30 ML LIQUID UDC PO PRN (13:48)
[2017-09-17] MEDS ORDERED: BISACODYL 10 MG SUPP.RECT RC PRN (14:45)
--- NOTE | 2017-09-17 15:07 | NUR ---
PATIENT REPORTED THAT MILK OF MAGNESIA DID NOT HELP. CALLED TO NOTIFY MAYELA MENA THERMO CEMENTING FOLDER OPERATOR, ORDERED DULCOLAX 10 MG SUPP Q DAILY PRN AND SENNA 1 TAB PO QHS, ORDERS CARRIED OUT.
[2017-09-17 15:15] VITALS: BP 152/69
--- NOTE | 2017-09-17 15:35 | NUR ---
NOTED WITH REDNESS UNDER THE SCROTUM WHILE CHANGING DIAPER, TOOK PICTURE, DOCUMENTED AND PLACED IN CHART. WILL CONTINUE TO MONITOR SITE
[2017-09-17 20:23] VITALS: BP 114/50
[2017-09-17] MEDS: MORPHINE SULFATE 4 MG/1 ML DISP.SYRIN IV PRN (21:32)
[2017-09-17] MEDS: SENNOSIDES 1 TABLET PO SCH (21:32)
[2017-09-18 04:00] VITALS: BP 105/52
[2017-09-18] MEDS: PANTOPRAZOLE SODIUM 40 MG TABLET.DR PO SCH (06:00)
[2017-09-18] MEDS: HYDROCODONE/APAP 5-325MG TABLET PO PRN ×3 (06:00→18:17)
--- NOTE | 2017-09-18 06:00 | NUR ---
Patient slept well, in no distress. Pain management as ordered. Patient kept clean/dry. Redness in groin and under scrotum noted, applied z guard as ordered. Lee cath intact/patent, draining yellow, clear urine. Bed alarm on, will continue to monitor.
[2017-09-18 07:10] LABS: BASOPHILS # (AUTO) 0.1 K/uL (0.0-8.0); EOSINOPHILS # (AUTO) 0.3 K/uL (0.0-0.7); EOSINOPHILS % (AUTO) 3.6 % (0.0-7.0); HEMATOCRIT 25.6 % (36.7-47.1); HEMOGLOBIN 8.8 g/dL (12.5-16.3); LYMPHOCYTES # (AUTO) 2.8 K/uL (20.0-40.0); LYMPHOCYTES % (AUTO) 30.3 % (20.5-51.5); MEAN CORPUSCULAR HGB CONC 34 g/dL (32.5-36.3); MEAN CORPUSCULAR VOLUME 96.5 fL (73.0-96.2); MONOCYTES # (AUTO) 0.8 K/uL (2.0-10.0); MONOCYTES % (AUTO) 8.5 % (0.0-11.0); NEUTROPHILS # (AUTO) 5.3 K/uL (1.8-8.9); NEUTROPHILS % (AUTO) 56.6 % (38.5-71.5); PLATELET COUNT (AUTO) 467 K/uL (152-348); RED BLOOD CELL COUNT(AUTO) 2.65 MIL/uL (4.06-5.63); WHITE BLOOD COUNT (AUTO) 9.4 K/uL (3.6-10.2)
--- NOTE | 2017-09-18 07:20 | NUR ---
Received client in bed awake, alert and oriented times 4. Client is able to verbalize needs. No pain, SOB, discomfort or distress noted. Bed at lowest position and call light within reach for assistance
[2017-09-18 07:35] LABS: BILIRUBIN,TOTAL 0.4 mg/dL (0.2-1.0); CREATININE 1.5 mg/dL (0.6-1.3); MAGNESIUM 2.2 mg/dL (1.8-2.4); PHOSPHOROUS 4.3 mg/dL (2.5-4.9); POTASSIUM 4.7 mmol/L (3.5-5.1); TOTAL PROTEIN, SERUM 6.1 g/dL (6.4-8.2)
[2017-09-18] MEDS: BOOST GLUCOSE CONTROL 237 ML LIQUID (CHOCOLATE) PO SCH ×2 (08:30→17:00)
[2017-09-18] MEDS: GABAPENTIN 100 MG CAPSULE PO SCH ×3 (08:40→18:17)
[2017-09-18] MEDS: NICOTINE 21 MG/24HR PATCH TD SCH (08:41)
[2017-09-18] MEDS: FERROUS SULFATE 325 MG TABEC PO SCH ×2 (08:41→20:33)
[2017-09-18] MEDS: DOCUSATE SODIUM 100 MG CAPSULE PO SCH ×2 (08:41→20:33)
[2017-09-18] MEDS: ALFUZOSIN HCL 10 MG TAB.SR.24H PO SCH (08:47)
[2017-09-18] MEDS: METOPROLOL TARTRATE 25 MG TABLET PO SCH ×2 (08:48→17:00)
[2017-09-18 12:03] VITALS: BP 113/57
--- NOTE | 2017-09-18 12:20 | NUR ---
Client state he felt uncomfortable and was reposition with the assistance of the LEAD DESIGNER. Client also stated he felt something went the wrong way down his throat. HOB at 75 degrees angle to prevent aspiration.
[2017-09-18 16:00] VITALS: BP 111/56
--- NOTE | 2017-09-18 18:45 | NUR ---
Client is in bed awake, alert and oriented times 4. No signs and symptoms of pain, SOB, distress or discomfort. Client asked if a reading book could be provided and I was unable to obtain one, client is aware. Client also stated he felt the right eye slightly swollen. Left eye on the outer corner is slightly pink in color, no discharge noted, slightly swollen.
--- NOTE | 2017-09-18 19:30 | NUR ---
Endorse to rn night to monitor left eye and follow up with MD if possible
--- NOTE | 2017-09-18 19:54 | NUR ---
RECEIVED SHIFT REPORT FROM DAY SHIFT NURSE. PATIENT RESTING COMFORTABLY IN BED. NO S/S OF DISTRESS. ALERT/ORIENTED. BED IN LOCKED/LOW POSITION, SIDE RAILS UP X2, BED ALARM ON, CALL LIGHT WITHIN REACH. SAFETY/COMFORT WILL BE PROVIDED.
[2017-09-18] MEDS: SENNOSIDES 1 TABLET PO SCH (20:33)
[2017-09-18 20:58] VITALS: BP 108/57
[2017-09-19 04:00] VITALS: BP 111/59
[2017-09-19] MEDS: PANTOPRAZOLE SODIUM 40 MG TABLET.DR PO SCH (06:12)
[2017-09-19 06:52] LABS: CREATININE 1.6 mg/dL (0.6-1.3); MAGNESIUM 2.1 mg/dL (1.8-2.4); PHOSPHOROUS 4.8 mg/dL (2.5-4.9); POTASSIUM 4.4 mmol/L (3.5-5.1)
--- NOTE | 2017-09-19 07:00 | NUR ---
CLIENT IN BED ASLEEP IN SUPINE POSITION, NO APPARENT SIGNS AND SYMPTOMS OF SOB, PAIN, DISTRESS OR DISCOMFORT.
[2017-09-19 07:09] LABS: BASOPHILS # (AUTO) 0.1 K/uL (0.0-8.0); BASOPHILS % (AUTO) 0.7 % (0.0-2.0); EOSINOPHILS # (AUTO) 0.4 K/uL (0.0-0.7); EOSINOPHILS % (AUTO) 3.7 % (0.0-7.0); HEMATOCRIT 25.4 % (36.7-47.1); LYMPHOCYTES # (AUTO) 2.5 K/uL (20.0-40.0); MEAN CORPUSCULAR HGB CONC 35 g/dL (32.5-36.3); MEAN CORPUSCULAR VOLUME 96.3 fL (73.0-96.2); MONOCYTES # (AUTO) 0.8 K/uL (2.0-10.0); MONOCYTES % (AUTO) 8.2 % (0.0-11.0); NEUTROPHILS # (AUTO) 5.9 K/uL (1.8-8.9); NEUTROPHILS % (AUTO) 61.4 % (38.5-71.5); PLATELET COUNT (AUTO) 501 K/uL (152-348); RED BLOOD CELL COUNT(AUTO) 2.64 MIL/uL (4.06-5.63); WHITE BLOOD COUNT (AUTO) 9.7 K/uL (3.6-10.2)
[2017-09-19] MEDS: BOOST GLUCOSE CONTROL 237 ML LIQUID (CHOCOLATE) PO SCH ×2 (08:00→17:54)
[2017-09-19] MEDS: FERROUS SULFATE 325 MG TABEC PO SCH ×2 (08:25→20:25)
[2017-09-19] MEDS: DOCUSATE SODIUM 100 MG CAPSULE PO SCH ×2 (08:25→20:25)
[2017-09-19] MEDS: GABAPENTIN 100 MG CAPSULE PO SCH ×3 (08:25→16:24)
[2017-09-19] MEDS: NICOTINE 21 MG/24HR PATCH TD SCH (08:25)
[2017-09-19] MEDS: METOPROLOL TARTRATE 25 MG TABLET PO SCH ×2 (08:26→16:25)
[2017-09-19] MEDS: ALFUZOSIN HCL 10 MG TAB.SR.24H PO SCH (08:29)
[2017-09-19] MEDS: HYDROCODONE/APAP 10-325 MG TABLET PO PRN (09:33)
--- NOTE | 2017-09-19 10:30 | NUR ---
CLIENT WAS PRE-MEDICATED PER-REQUEST BY PHYSICAL THERAPY
--- NOTE | 2017-09-19 10:45 | NUR ---
SEEN BY PHYSICAL THERAPY, CLIENT STATED HE FELT DIZZY AFTERWARDS. ENCOURAGE CLIENT TO RELAX AND TAKE DEEP BREATHS, ENCOURAGE CLIENT TO INCREASE HIS HYDRATION INTAKE
[2017-09-19 11:37] VITALS: BP 94/51
[2017-09-19 11:41] VITALS: BP 109/57
[2017-09-19 12:17] VITALS: BP 117/72
--- NOTE | 2017-09-19 12:30 | NUR ---
SEEN BY ON-CALL HOSPITAL DOCTOR, CLIENT'S DIZZY EPISODE MADE AWARE TO DOCTOR. DOCTOR STATED HE HAS ORTHOSTATIC HYPOTENSION
[2017-09-19 15:39] VITALS: BP 106/54
--- NOTE | 2017-09-19 17:35 | NUR ---
HOSPITAL'S CHILD WELFARE ASSISTANT DOCTOR IS AWARE OF CLIENT'S LEFT EYE CONDITION, DOCTOR ORDERED TO CONTINUE TO MONITOR.
--- NOTE | 2017-09-19 19:20 | NUR ---
CLIENT IN BED IN SUPINE POSITION WATCHING TELEVISION. NO SIGNS AND SYMPTOMS OF SOB, DISTRESS, DISCOMFORT OR PAIN. NURSING CARE PROVIDED THROUGHOUT THE SHIFT. CLIENT ABLE TO VERBALIZE NEEDS, COMPLIANT WITH MEDICATIONS.
[2017-09-19 19:46] VITALS: BP 102/53
--- NOTE | 2017-09-19 19:46 | NUR ---
RECEIVED SHIFT REPORT FROM DAY SHIFT NURSE. PATIENT RESTING COMFORTABLY IN BED. NO S/S OF DISTRESS. STABLE CONDITION. INFORMED BY DAY SHIFT NURSE THAT BP HAS BEEN IN THE 90S AFTER PT. POSSIBLE ORTHOSTATIC HYPOTENSION PER MD. WILL MONITOR PATIENT'S BP THROUGHOUT SHIFT. WILL START PATIENT'S FLUIDS. BED IN LOCKED/LOW POSITION, BED ALARM ON, CALL LIGHT WITHIN REACH. COMFORT/SAFETY WILL BE PROVIDED.
[2017-09-19] MEDS: SENNOSIDES 1 TABLET PO SCH (20:25)
[2017-09-19] MEDS: IV NS 1000 ML 1,000 ML IV PRN (21:07)
[2017-09-20 03:41] VITALS: BP 125/57
[2017-09-20] MEDS: HYDROCODONE/APAP 10-325 MG TABLET PO PRN ×2 (04:13→20:20)
[2017-09-20] MEDS: PANTOPRAZOLE SODIUM 40 MG TABLET.DR PO SCH (06:10)
[2017-09-20 06:34] LABS: BASOPHILS # (AUTO) 0.1 K/uL (0.0-8.0); BASOPHILS % (AUTO) 0.9 % (0.0-2.0); EOSINOPHILS # (AUTO) 0.3 K/uL (0.0-0.7); EOSINOPHILS % (AUTO) 2.8 % (0.0-7.0); HEMATOCRIT 24.5 % (36.7-47.1); HEMOGLOBIN 8.5 g/dL (12.5-16.3); LYMPHOCYTES # (AUTO) 2.2 K/uL (20.0-40.0); LYMPHOCYTES % (AUTO) 21.9 % (20.5-51.5); MEAN CORPUSCULAR HEMOGLOBIN 33.4 uug (23.8-33.4); MEAN CORPUSCULAR HGB CONC 35 g/dL (32.5-36.3); MEAN CORPUSCULAR VOLUME 96.2 fL (73.0-96.2); MONOCYTES # (AUTO) 0.9 K/uL (2.0-10.0); MONOCYTES % (AUTO) 8.4 % (0.0-11.0); NEUTROPHILS # (AUTO) 6.8 K/uL (1.8-8.9); PLATELET COUNT (AUTO) 515 K/uL (152-348); RED BLOOD CELL COUNT(AUTO) 2.55 MIL/uL (4.06-5.63); WHITE BLOOD COUNT (AUTO) 10.3 K/uL (3.6-10.2)
[2017-09-20 07:08] LABS: CREATININE 1.4 mg/dL (0.6-1.3); PHOSPHOROUS 4.4 mg/dL (2.5-4.9); POTASSIUM 4.8 mmol/L (3.5-5.1)
[2017-09-20] MEDS: FERROUS SULFATE 325 MG TABEC PO SCH ×2 (08:48→20:19)
[2017-09-20] MEDS: NICOTINE 21 MG/24HR PATCH TD SCH (08:48)
[2017-09-20] MEDS: DOCUSATE SODIUM 100 MG CAPSULE PO SCH ×2 (08:48→20:19)
[2017-09-20] MEDS: METOPROLOL TARTRATE 25 MG TABLET PO SCH ×2 (08:49→17:10)
[2017-09-20] MEDS: GABAPENTIN 100 MG CAPSULE PO SCH ×3 (09:01→17:10)
[2017-09-20] MEDS: ALFUZOSIN HCL 10 MG TAB.SR.24H PO SCH (09:45)
[2017-09-20] MEDS: BOOST GLUCOSE CONTROL 237 ML LIQUID (CHOCOLATE) PO SCH ×2 (09:48→17:21)
--- NOTE | 2017-09-20 10:06 | NUR ---
PATIENT RESTING COMFORTABLY IN BED AT THE MOMENT. BLOOD PRESSURE 96/57, HEART RATE 92. FLUIDS RUNNING. METOPROLOL HELD AT 0900. PHYSICAL THERAPY HELD AND WILL CHECK ON PATIENT LATER. PATIENT VERBALIZED THAT HE FEELS WEAK. PHYSICAL THERAPY AWARE.
[2017-09-20 11:43] VITALS: BP 107/49
--- NOTE | 2017-09-20 12:03 | NUR ---
Received report from shift mgr. Client is sleep in bed supine turned to the left side. no apparent signs and symptoms of SOB, pain, distress or discomfort.
--- NOTE | 2017-09-20 14:15 | NUR ---
CLIENT IS BEING SEEN BY PHYSICAL THERAPY AT THIS TIME.
[2017-09-20] MEDS: IV NS 1000 ML 1,000 ML IV PRN (14:21)
[2017-09-20] MEDS: HYDROCODONE/APAP 5-325MG TABLET PO PRN (14:21)
--- NOTE | 2017-09-20 14:26 | NUR ---
POST MEDICATED CLIENT AFTER PHYSICAL THERAPY. CLIENT STATED HE STILL FELT DIZZY DURING THE PT SESSION BUT NOT BAD YESTERDAY.
--- NOTE | 2017-09-20 14:35 | NUR ---
Nurse stated she received report from physical therapy, stating client experienced orthostatic hypotension during PT. B/P as follows 109/60, 102/54, 135/70 sitting, marching in place 87/56 and in bed 148/60.
[2017-09-20 15:38] VITALS: BP 135/68
--- NOTE | 2017-09-20 18:30 | NUR ---
CLIENT IN BED AWAKE , ALERT AND ORIENTED TIMES 4. LAYING IN SUPINE POSITION. CLIENT WAS EDUCATED ON THE IMPORTANCE OF TRYING TO REPOSITION HIMSELF IN BED. NO APPARENT SIGNS AND SYMPTOMS OF SOB, PAIN, DISTRESS OR DISCOMFORT.
--- NOTE | 2017-09-20 19:00 | NUR ---
INFORMED UROLOGIST THAT CLIENT IS EXPERIENCING ORTHOSTATIC HYPOTENSION. UROLOGIST STATED BEEBE CATHETER WOULD NOT BE DC AT THIS TIME.
[2017-09-20 20:00] VITALS: BP 125/56
[2017-09-20] MEDS: SENNOSIDES 1 TABLET PO SCH (20:19)
--- NOTE | 2017-09-20 21:00 | NUR ---
PT RECEIVED ALERT, AWAKE AND ORIENTED. PT ASKED FOR HIS PAIN MEDICATION BECAUSE HE HAS PAIN IN HIS RIGHT HIP AND RIGHT LEG. NO S/SX OF DISTRESS. SAFETY AND COMFORT RENDERED.
[2017-09-20] MEDS: ACETAMINOPHEN 325 MG TABLET PO PRN (22:04)
--- NOTE | 2017-09-21 04:00 | NUR ---
FOUND BEEBE BAG LEAKING. BEEBE WAS INITIATED. COMFORT PROVIDED AND SAFETY.
[2017-09-21] MEDS: PANTOPRAZOLE SODIUM 40 MG TABLET.DR PO SCH (05:30)
--- NOTE | 2017-09-21 06:00 | NUR ---
PT WAS AWAKE ALERT ORIENTED IN BED. NO S/SX OF DISTRESS. CALL LIGHT WITHIN REACH. SAFETY AND COMFORT PROVIDED.
[2017-09-21] MEDS: IV NS 1000 ML 1,000 ML IV PRN ×2 (06:25→20:25)
[2017-09-21 06:27] VITALS: BP 145/65
--- NOTE | 2017-09-21 07:20 | NUR ---
CLIENT IN BED AWAKE, ALERT AND ORIENTED TIMES 4, CLIENT LATING SUPINE IN BED WITH THE HOB AT 45 DEGREES ANGLE, STATES NO PAIN RIGHT NOW, NO APPARENT SIGNS AND SYMPTOMS OF SOB, DISTRESS OR DISCOMFORT. CLIENT IS STATING HE WANTS COFFEE
[2017-09-21 07:23] LABS: CREATININE 1.3 mg/dL (0.6-1.3); PHOSPHOROUS 4.1 mg/dL (2.5-4.9); POTASSIUM 4.5 mmol/L (3.5-5.1)
[2017-09-21] MEDS: BOOST GLUCOSE CONTROL 237 ML LIQUID (CHOCOLATE) PO SCH ×2 (08:00→17:00)
[2017-09-21 08:12] LABS: BASOPHILS # (AUTO) 0.1 K/uL (0.0-8.0); BASOPHILS % (AUTO) 0.7 % (0.0-2.0); EOSINOPHILS # (AUTO) 0.3 K/uL (0.0-0.7); EOSINOPHILS % (AUTO) 3.7 % (0.0-7.0); HEMATOCRIT 25.9 % (36.7-47.1); HEMOGLOBIN 8.9 g/dL (12.5-16.3); LYMPHOCYTES # (AUTO) 2.6 K/uL (20.0-40.0); LYMPHOCYTES % (AUTO) 29.7 % (20.5-51.5); MEAN CORPUSCULAR HEMOGLOBIN 33.2 uug (23.8-33.4); MEAN CORPUSCULAR HGB CONC 34 g/dL (32.5-36.3); MEAN CORPUSCULAR VOLUME 96.5 fL (73.0-96.2); MONOCYTES # (AUTO) 0.7 K/uL (2.0-10.0); MONOCYTES % (AUTO) 7.9 % (0.0-11.0); PLATELET COUNT (AUTO) 565 K/uL (152-348); RED BLOOD CELL COUNT(AUTO) 2.69 MIL/uL (4.06-5.63); WHITE BLOOD COUNT (AUTO) 8.6 K/uL (3.6-10.2)
[2017-09-21] MEDS: NICOTINE 21 MG/24HR PATCH TD SCH (09:51)
[2017-09-21] MEDS: FERROUS SULFATE 325 MG TABEC PO SCH ×2 (09:51→20:10)
[2017-09-21] MEDS: DOCUSATE SODIUM 100 MG CAPSULE PO SCH ×2 (09:51→20:10)
[2017-09-21] MEDS: LISINOPRIL 10 MG TABLET PO SCH (09:51)
[2017-09-21] MEDS: METOPROLOL TARTRATE 25 MG TABLET PO SCH ×2 (09:52→16:27)
[2017-09-21] MEDS: GABAPENTIN 100 MG CAPSULE PO SCH ×3 (09:52→16:27)
[2017-09-21] MEDS: ALFUZOSIN HCL 10 MG TAB.SR.24H PO SCH (09:56)
[2017-09-21 11:18] VITALS: BP 138/54
[2017-09-21] MEDS: HYDROCODONE/APAP 5-325MG TABLET PO PRN (12:01)
--- NOTE | 2017-09-21 12:30 | NUR ---
CLIENT HAS PHYSICAL THERAPY IN PROGRESS, ABLE TO AMBULATE TO THE DOOR WITH THE ASSISTANCE OF TWO PT'S. CLIENT WAS POST MEDICATED WITH NORCO, CLIENT STATED HE FELT BETTER WITH HIS ORTHOSTATIC HYPOTENSION.
[2017-09-21 16:02] VITALS: BP 105/48
--- NOTE | 2017-09-21 17:30 | NUR ---
During initial rounds patient is awake, alert, and oriented x4. At this time patient is lying in bed reading a book, no distress noted. Denies pain or discomfort. Bed in low position and call light within reach. Addendum: 09/22/17 at 0110 by SUMAN CARY RN Time error. Initial round was made at 1930.
--- NOTE | 2017-09-21 19:04 | NUR ---
SESAR IN BED AWAKE, ALERT AND ORIENTED TIMES 4, HOB AT HIGH FOWLERS. NO APPARENT SIGNS AND SYMPTOMS OF SOB, PAIN, DISTRESS OR DISCOMFORT. CLIENT IS WATCHING TELEVISION. IV FLUID RUNNING AND IV SITE INTACT AND PATENT, BEEBE CATHETER STILL IN PLACE. BED AT LOWEST POSITION.
[2017-09-21 20:00] VITALS: BP 129/54
[2017-09-21] MEDS: SENNOSIDES 1 TABLET PO SCH (20:10)
[2017-09-21] MEDS: HYDROCODONE/APAP 10-325 MG TABLET PO PRN (20:11)
[2017-09-22 06:04] VITALS: BP 134/59
[2017-09-22] MEDS: PANTOPRAZOLE SODIUM 40 MG TABLET.DR PO SCH (06:06)
[2017-09-22 07:21] LABS: BASOPHILS # (AUTO) 0.1 K/uL (0.0-8.0); BASOPHILS % (AUTO) 0.8 % (0.0-2.0); EOSINOPHILS # (AUTO) 0.3 K/uL (0.0-0.7); EOSINOPHILS % (AUTO) 3.6 % (0.0-7.0); HEMATOCRIT 24.7 % (36.7-47.1); HEMOGLOBIN 8.5 g/dL (12.5-16.3); LYMPHOCYTES # (AUTO) 2.9 K/uL (20.0-40.0); LYMPHOCYTES % (AUTO) 30.8 % (20.5-51.5); MEAN CORPUSCULAR HEMOGLOBIN 33.4 uug (23.8-33.4); MEAN CORPUSCULAR HGB CONC 35 g/dL (32.5-36.3); MEAN CORPUSCULAR VOLUME 96.5 fL (73.0-96.2); MONOCYTES # (AUTO) 0.8 K/uL (2.0-10.0); MONOCYTES % (AUTO) 8.3 % (0.0-11.0); NEUTROPHILS # (AUTO) 5.3 K/uL (1.8-8.9); NEUTROPHILS % (AUTO) 56.5 % (38.5-71.5); PLATELET COUNT (AUTO) 592 K/uL (152-348); RED BLOOD CELL COUNT(AUTO) 2.56 MIL/uL (4.06-5.63); WHITE BLOOD COUNT (AUTO) 9.4 K/uL (3.6-10.2)
[2017-09-22 07:34] LABS: BILIRUBIN,TOTAL 0.3 mg/dL (0.2-1.0); CREATININE 1.2 mg/dL (0.6-1.3); MAGNESIUM 1.8 mg/dL (1.8-2.4); PHOSPHOROUS 3.8 mg/dL (2.5-4.9); POTASSIUM 4.3 mmol/L (3.5-5.1); TOTAL PROTEIN, SERUM 6.5 g/dL (6.4-8.2)
[2017-09-22] MEDS: BOOST GLUCOSE CONTROL 237 ML LIQUID (CHOCOLATE) PO SCH (08:00)
--- NOTE | 2017-09-22 08:00 | NUR ---
Awake, alert, oriented x 4, pleasant. IVF infusing. Pain level 5/10, which is okay for him. Discussed pain management.
[2017-09-22] MEDS: DOCUSATE SODIUM 100 MG CAPSULE PO SCH (09:13)
[2017-09-22] MEDS: FERROUS SULFATE 325 MG TABEC PO SCH (09:13)
[2017-09-22] MEDS: GABAPENTIN 100 MG CAPSULE PO SCH ×2 (09:14→13:13)
[2017-09-22] MEDS: LISINOPRIL 10 MG TABLET PO SCH (09:14)
[2017-09-22] MEDS: NICOTINE 21 MG/24HR PATCH TD SCH (09:15)
[2017-09-22] MEDS: ALFUZOSIN HCL 10 MG TAB.SR.24H PO SCH (09:15)
[2017-09-22] MEDS: METOPROLOL TARTRATE 25 MG TABLET PO SCH (09:15)
[2017-09-22] MEDS: HYDROCODONE/APAP 10-325 MG TABLET PO PRN (11:22)
[2017-09-22 11:47] VITALS: BP 102/63
[2017-09-22] MEDS ORDERED: DOCU100C36 PO (14:51)
[2017-09-22] MEDS ORDERED: BISA10SU12 RC (14:51)
[2017-09-22] MEDS ORDERED: ACET325T53 PO (14:51)
[2017-09-22] MEDS ORDERED: SENN-167 PO (14:51)
[2017-09-22] MEDS ORDERED: HYDR-548 PO (14:51)
[2017-09-22] MEDS ORDERED: MAGN400O6 PO (14:51)
[2017-09-22] MEDS ORDERED: LISI10TA5 PO (14:51)
[2017-09-22] MEDS ORDERED: Nut.tx.glucose Intolerance,Soy PO (14:51)
[2017-09-22] MEDS ORDERED: ALFU10TA PO (14:51)
[2017-09-22] MEDS ORDERED: FERR325T28 PO (14:51)
[2017-09-22 15:56] VITALS: BP 131/62
--- NOTE | 2017-09-22 17:07 | NUR ---
With discharge order to SNF, arranged at [facility], report given to Karen. Saline lock removed. DC instructions given, verbalized understanding. Discharged per gurney/ambulance in fair condition, not in distress, afebrile
== END 2017-09-22 17:10 | DRG 963 ==
LOC: ER 19:04 → MED 22:09 → TELE 09-10 11:38 → MED 09-12 11:15
PROVIDERS: ADMIT Internal Medicine; ATTEND Internal Medicine
DX: S32.16XA Type 3 fracture of sacrum, initial encounter for closed fracture (principal); N17.0 Acute kidney failure with tubular necrosis; S36.899A Unspecified injury of other intra-abdominal organs, initial encounter; S32.491A Other specified fracture of right acetabulum, initial encounter for closed fracture; E43 Unspecified severe protein-calorie malnutrition; J90 Pleural effusion, not elsewhere classified; I31.3 Pericardial effusion (noninflammatory); S37.892A Contusion of other urinary and pelvic organ, initial encounter; M48.56XA Collapsed vertebra, not elsewhere classified, lumbar region, initial encounter for fracture; N39.0 Urinary tract infection, site not specified; E87.1 Hypo-osmolality and hyponatremia; S32.048A Other fracture of fourth lumbar vertebra, initial encounter for closed fracture; S32.059A Unspecified fracture of fifth lumbar vertebra, initial encounter for closed fracture; S32.591A Other specified fracture of right pubis, initial encounter for closed fracture; E83.42 Hypomagnesemia; E83.39 Other disorders of phosphorus metabolism; M41.9 Scoliosis, unspecified; W18.30XA Fall on same level, unspecified, initial encounter; Y92.009 Unspecified place in unspecified non-institutional (private) residence as the place of occurrence of the external cause; M51.26 Other intervertebral disc displacement, lumbar region; E78.5 Hyperlipidemia, unspecified; F43.22 Adjustment disorder with anxiety; K44.9 Diaphragmatic hernia without obstruction or gangrene; N40.1 Benign prostatic hyperplasia with lower urinary tract symptoms; R33.8 Other retention of urine; Z68.22 Body mass index [BMI] 22.0-22.9, adult; D53.9 Nutritional anemia, unspecified; N20.0 Calculus of kidney; R41.0 Disorientation, unspecified; Z87.891 Personal history of nicotine dependence; I11.9 Hypertensive heart disease without heart failure; I70.0 Atherosclerosis of aorta; M51.16 Intervertebral disc disorders with radiculopathy, lumbar region; M46.90 Unspecified inflammatory spondylopathy, site unspecified; B96.89 Other specified bacterial agents as the cause of diseases classified elsewhere; D47.3 Essential (hemorrhagic) thrombocythemia; K59.00 Constipation, unspecified; R97.20 Elevated prostate specific antigen [PSA]; Z86.73 Personal history of transient ischemic attack (TIA), and cerebral infarction without residual deficits; Z87.81 Personal history of (healed) traumatic fracture; R07.89 Other chest pain
CPT/HCPCS: 36415; 70030-TC; 70450; 71010; 72110; 72131; 72148; 72220; 74000; 76770; 82746; 83550; 83690; 83735; 84100; 84153; 84156; 84300; 84443; 85025; 85651; 85730; 87040; 87086; 93005; 93307; 97110; 97116; 97530; A4663; C1758; J0360; J1644; J2270; J2405; J3475; J3490; J7030